=== PATIENT | male | born 2000 | race Two or more races ===

== ENCOUNTER 2021-07-27 14:24 | Outpatient (CLI) | payer OTHER ==
[~2021-07-27 14:24] MED LIST: NABUMETONE500 MG PO; PERCOCET 5/3251 TAB PO
== END 2021-07-27 14:31 | disposition home or self-care (01) ==
LOC: RAD 14:24
PROVIDERS: ATTEND Orthopaedic Surgery
DX: M25.561 Pain in right knee (principal); M25.562 Pain in left knee